=== PATIENT | male | born 1975 | race Caucasian/White ===

== ENCOUNTER 2018-05-05 20:18 | Emergency (ER) | payer OTHER ==
[~2018-05-05] VITALS: Ht 172.7 cm; Wt 63.5 kg
[~2018-05-05 20:18] MED LIST: HYDACE25S PR; HYDACE5 PO; IBUP800 PO; ONDA8ODT MM; OXYACE5T PO; PROM25 PO; RXCLIN PO
[2018-05-05 21:00] LABS: Chloride (POC) 107 mmol/L (98-108); Creatinine (POC) 0.9 mg/dL (0.8-1.3); Glucose (ISTAT POC) 90 mg/dL (70-99); Hemoglobin (POC) 15.3 g/dL (13.5-17.5); Sodium (POC) 141 mmol/L (135-148); Total CO2 (POC) 24 mmol/L (21-32)
[2018-05-05] MEDS ORDERED: Bactrim 400-801 EACH PO (22:50)
[2018-05-05] MEDS ORDERED: METR500 PO (22:50)
== END 2018-05-05 23:05 | disposition home or self-care (01) ==
LOC: ER 20:18
DX: L02.31 Cutaneous abscess of buttock (principal); I10 Essential (primary) hypertension
CPT/HCPCS: 10080; 36415; 72193; 80047; 85014; 99284-25; Q9967

== ENCOUNTER 2018-05-19 16:16 | Emergency (ER) | payer OTHER ==
[~2018-05-19] VITALS: Ht 175.3 cm; Wt 108.9 kg
[~2018-05-19 16:16] MED LIST changes: +Bactrim 400-801 EACH PO; +METR500 PO
[2018-05-19 17:09] LABS: BASOPHILS ABSOLUTE AUTO 0.08 K/mm3 (0.00-0.23); BASOPHILS PERCENT AUTO 1 % (0-2); EOSINOPHILS ABSOLUTE AUTO 0.34 K/mm3 (0.00-0.68); EOSINOPHILS PERCENT AUTO 4 % (0-6); Hematocrit 43.4 % (37.0-53.0); Hemoglobin 13.8 g/dL (13.5-17.5); IMMATURE GRAN ABSOLUTE AUTO 0.04 K/mm3 (0.00-0.10); IMMATURE GRAN PERCENT AUTO 1 % (0-1); LYMPHOCYTES ABSOLUTE AUTO 2.43 K/mm3 (0.84-5.20); LYMPHOCYTES PERCENT AUTO 31 % (21-46); MONOCYTES ABSOLUTE AUTO 0.41 K/mm3 (0.16-1.47); MONOCYTES PERCENT AUTO 5 % (4-13); Mean Corpuscular HGB 27.2 pg (26.0-34.0); Mean Corpuscular HGB Conc 31.8 g/dL (31.5-36.5); Mean Corpuscular Volume 86 fL (80-100); Mean Platelet Volume 10.5 fL (9.1-12.4); NEUTROPHILS ABSOLUTE AUTO 4.64 K/mm3 (1.96-9.15); NEUTROPHILS PERCENT AUTO 58 % (41-73); Platelet Count 302 K/mm3 (150-400); RDW Coefficient Variation 13.5 % (11.7-14.2); RDW Standard Deviation 41.8 fL (35.1-46.3); Red Blood Cell Count 5.07 M/mm3 (4.30-5.90); White Blood Cell Count 7.94 K/mm3 (4.00-11.30)
[2018-05-19 17:22] LABS: Alanine Aminotransfer (ALT/SGP 47 U/L (12-78); Albumin, Blood 3.7 g/dL (3.4-5.0); Alk Phos 49 U/L (50-136); Anion Gap 7 mmol/L (6-16); Aspartate Aminotrans (AST/SGOT 22 U/L (12-37); Bilirubin, Total 0.2 mg/dL (0.1-1.0); Blood Urea Nitrogen 11 mg/dL (8-24); Bun/Creatinine Ratio 12.9 (12.0-20.0); CO2, Blood 23 mmol/L (21-32); Calcium, Blood 8.5 mg/dL (8.5-10.1); Chloride, Blood 113 mmol/L (98-108); Creatinine, Blood 0.85 mg/dL (0.60-1.20); Globulin, Blood 3.8 g/dL (2.2-4.0); Glomerular Filtration Rate >60 (60-); Glucose, Blood 89 mg/dL (70-99); Potassium, Blood 4.1 mmol/L (3.5-5.5); Sodium, Blood 143 mmol/L (136-145); Total Protein, Blood 7.5 g/dL (6.4-8.2)
[2018-05-19] MEDS ORDERED: Sulfamethoxazo1 EAC4 PO (17:51)
[2018-05-19] MEDS ORDERED: CYCL10 (17:52)
[2018-05-19] MEDS ORDERED: Triamterene W/1 EACH PO (19:30)
== END 2018-05-19 19:42 | disposition home or self-care (01) ==
LOC: ER 16:16
PROVIDERS: Physician Assistant
DX: N43.3 Hydrocele, unspecified (principal); R60.0 Localized edema; G43.909 Migraine, unspecified, not intractable, without status migrainosus; Z79.899 Other long term (current) drug therapy
CPT/HCPCS: 36415; 71046; 76870; 80053; 83880; 85025; 93005; 93010

== ENCOUNTER 2019-04-05 18:59 | Emergency (ER) | payer BC ==
[~2019-04-05] VITALS: Ht 172.7 cm; Wt 127.0 kg
[~2019-04-05 18:59] MED LIST changes: +CYCL10; +Sulfamethoxazo1 EAC4 PO; +Triamterene W/1 EACH PO
[2019-04-05] MEDS ORDERED: CEPH500 PO (22:04)
== END 2019-04-05 22:19 | disposition home or self-care (01) ==
LOC: ER 18:59
DX: S61.411A Laceration without foreign body of right hand, initial encounter (principal); W01.198A Fall on same level from slipping, tripping and stumbling with subsequent striking against other object, initial encounter; Z79.899 Other long term (current) drug therapy; G43.909 Migraine, unspecified, not intractable, without status migrainosus
CPT/HCPCS: 12002; 99282-25; A9270-GY

== ENCOUNTER 2019-10-22 14:47 | Emergency (ER) | payer BC ==
[~2019-10-22] VITALS: Ht 170.2 cm; Wt 72.6 kg
[~2019-10-22 14:47] MED LIST changes: +CEPH500 PO
[2019-10-22] MEDS ORDERED: Amoxicillin500 MG PO (16:13)
[2019-10-22] MEDS ORDERED: MECL25 PO (16:13)
[2019-10-22] MEDS ORDERED: ONDA4ODT MM (16:13)
== END 2019-10-22 16:20 | disposition home or self-care (01) ==
LOC: ER 14:47
DX: N43.3 Hydrocele, unspecified (principal); H61.23 Impacted cerumen, bilateral; H66.91 Otitis media, unspecified, right ear
CPT/HCPCS: 69210; 76870; 99284-25

== ENCOUNTER 2023-09-09 20:06 | Emergency (ER) | payer OTHER, BC ==
[~2023-09-09] VITALS: Ht 170.2 cm; Wt 77.1 kg
[~2023-09-09 20:06] MED LIST changes: +Amoxicillin500 MG PO; +MECL25 PO; +ONDA4ODT MM
[2023-09-09 20:12] VITALS: BP 168/92
[2023-09-09] MEDS ORDERED: Ketorolac Tromethamine 30mg Vial IV ONE (20:15)
[2023-09-09 20:22] LABS: BASOPHILS PERCENT AUTO 1 % (0-2); EOSINOPHILS ABSOLUTE AUTO 0.37 K/mm3 (0.00-0.68); EOSINOPHILS PERCENT AUTO 3 % (0-6); Hematocrit 47.1 % (37.0-53.0); Hemoglobin 15.6 g/dL (13.5-17.5); IMMATURE GRAN ABSOLUTE AUTO 0.09 K/mm3 (0.00-0.10); IMMATURE GRAN PERCENT AUTO 1 % (0-1); LYMPHOCYTES ABSOLUTE AUTO 2.58 K/mm3 (0.84-5.20); LYMPHOCYTES PERCENT AUTO 21 % (21-46); MONOCYTES ABSOLUTE AUTO 0.54 K/mm3 (0.16-1.47); MONOCYTES PERCENT AUTO 4 % (4-13); Mean Corpuscular HGB 28.1 pg (26.0-34.0); Mean Corpuscular HGB Conc 33.1 g/dL (31.5-36.5); Mean Corpuscular Volume 85 fL (80-100); NEUTROPHILS PERCENT AUTO 71 % (41-73); Platelet Count 285 K/mm3 (150-400); RDW Coefficient Variation 13.5 % (11.7-14.2); RDW Standard Deviation 42.2 fL (35.1-46.3); Red Blood Cell Count 5.56 M/mm3 (4.30-5.90); White Blood Cell Count 12.48 K/mm3 (4.00-11.30)
[2023-09-09 20:47] LABS: Alanine Aminotransfer (ALT/SGP 31 U/L (12-78); Albumin, Blood 4.3 g/dL (3.4-5.0); Albumin/Globulin Ratio 1.2 (0.8-1.8); Alk Phos 55 U/L (50-136); Anion Gap 9 mmol/L (3-11); Aspartate Aminotrans (AST/SGOT 20 U/L (12-37); Bilirubin, Total 0.7 mg/dL (0.1-1.0); Blood Urea Nitrogen 11 mg/dL (8-24); Bun/Creatinine Ratio 11.3 (12.0-20.0); CO2, Blood 26 mmol/L (21-32); Calcium, Blood 10.2 mg/dL (8.5-10.1); Chloride, Blood 111 mmol/L (98-108); Creatinine, Blood 0.97 mg/dL (0.60-1.20); Ethanol (Alcohol), Blood, Med <3 mg/dL; Globulin, Blood 3.7 g/dL (2.2-4.0); Glomerular Filtration Rate 96 (60-); Glucose, Blood 129 mg/dL (70-99); Potassium, Blood 3.2 mmol/L (3.5-5.5); Sodium, Blood 143 mmol/L (136-145)
[2023-09-09] MEDS ORDERED: HYDROCODONE-AC1 EA10 PO (22:12)
[2023-09-09] MEDS ORDERED: IBUP800 PO (22:12)
== END 2023-09-09 22:56 | disposition home or self-care (01) ==
LOC: ER 20:06
PROVIDERS: Emergency Medicine
DX: S22.22XA Fracture of body of sternum, initial encounter for closed fracture (principal); V43.52XA Car driver injured in collision with other type car in traffic accident, initial encounter; G43.909 Migraine, unspecified, not intractable, without status migrainosus
CPT/HCPCS: 71260; 74177; 80053; 83690; 84484; 85025; 93005; 93010; 96374-59; 99285-25; J1885; Q9967

== ENCOUNTER 2024-02-26 02:01 | Emergency (ER) | payer OTHER ==
[~2024-02-26] VITALS: Ht 170.2 cm; Wt 117.9 kg
[~2024-02-26 02:01] MED LIST changes: +HYDROCODONE-AC1 EA10 PO
[2024-02-26 02:15] VITALS: BP 135/95
[2024-02-26] MEDS ORDERED: Ofloxacin 0.3% Otic Soln 5 ML RIGHTEAR ONE (02:20)
[2024-02-26] MEDS ORDERED: OFLOXACIN5 M2 RIGHTEAR (02:26)
== END 2024-02-26 02:48 | disposition home or self-care (01) ==
LOC: ER 02:01
DX: H72.91 Unspecified perforation of tympanic membrane, right ear (principal); H60.91 Unspecified otitis externa, right ear; G43.909 Migraine, unspecified, not intractable, without status migrainosus
CPT/HCPCS: 99282; A9270

== ENCOUNTER 2025-01-29 10:41 | Day surgery (SDC) | payer OTHER ==
[~2025-01-29] VITALS: Ht 172.7 cm; Wt 125.6 kg
[~2025-01-29 10:41] MED LIST changes: +OFLOXACIN5 M2 RIGHTEAR
[2025-01-29] MEDS ORDERED: CeFAZolin Sodium 3,000 MG VIAL ONE (11:01)
[2025-01-29] MEDS ORDERED: 1/2 NS 250ml250 ML (11:11)
[2025-01-29] MEDS ORDERED: IBU800 M1 PO (11:11)
[2025-01-29] MEDS ORDERED: TAMS.4ER PO (11:11)
[2025-01-29] MEDS ORDERED: FentaNYL Citrate 50 MCG/ML 2 ML Injection ONE (12:24)
[2025-01-29] MEDS ORDERED: Dexamethasone Sod Phos 10 MG/ML 1ML VIAL ONE (12:47)
[2025-01-29] MEDS ORDERED: Ondansetron HCl 2 MG / ML 2ML Vial ONE (12:47)
[2025-01-29] MEDS ORDERED: Bupivacaine HCl 0.25% 30 ML Injection INJ ONE (12:53)
[2025-01-29] MEDS ORDERED: Bupivacaine HCl 0.25% 50 ML Vial (NON CHARGE) XX ONE (12:53)
[2025-01-29] MEDS ORDERED: HYDROmorphone HCl/Pf 1MG SYR ONE (12:58)
[2025-01-29] MEDS ORDERED: Rocuronium Bromide 10 MG/ML 5ML Injection IV ONE (13:19)
[2025-01-29] MEDS ORDERED: Sugammadex Sodium 200 MG/2ML SDV (100 MG/ML) ONE (13:23)
[2025-01-29] MEDS ORDERED: Naloxone HCl 0.4MG / ML 1ML Vial ONE (13:39)
--- NOTE | 2025-01-29 14:13 | NUR ---
01/29/25 1413 Viktoria Michael RN ASSISTED PT TO RECLINER. VSS. PT DENIES DIZZINESS/NAUSEA/PAIN. REPORT GIVEN TO WILFRID ZUÑIGA.
[2025-01-29] MEDS ORDERED: Metoclopramide HCl 5MG / ML 2ML Vial ONE (14:47)
[2025-01-29 15:22] VITALS: BP 155/94
== END 2025-01-29 15:10 | disposition home or self-care (01) ==
LOC: ORSCSDS 10:41
PROVIDERS: Urology
PROC: 0VBG0ZZ Excision of Left Spermatic Cord, Open Approach (ICD-10-PCS; principal; 2025-01-29 12:30)
DX: N43.0 Encysted hydrocele (principal); N50.812 Left testicular pain; G47.33 Obstructive sleep apnea (adult) (pediatric); E66.01 Morbid (severe) obesity due to excess calories; Z68.41 Body mass index [BMI] 40.0-44.9, adult; Z79.899 Other long term (current) drug therapy
CPT/HCPCS: 82947; 88302; J0690; J1100; J1171; J2312; J2405; J2704; J2765; J3010; J7120